=== PATIENT | male | born 1995 | race Caucasian/White ===

== ENCOUNTER 2020-11-10 19:35 | Emergency (ER) | payer OTHER, SELFPAY ==
[2020-11-10 19:36] VITALS: BP 133/95; PULSE 78; RESP 16; TEMP 37.6; O2SAT 96; BMI 18.8
[2020-11-10 19:52] VITALS: BMI 19.3
--- NOTE | 2020-11-10 20:47 | W.ED.ANXIETY ---
HPI - Anxiety General: Chief Complaint: Anxiety Stated Complaint: anxiety Time Seen by Provider: 11/10/20 19:40 History of Present Illness: HPI narrative: 25-year-old male who is on hydrocodone chronically for neck and back pain. His last dose was last night. He had been trying to take himself off of these. He is experienced significant withdrawal symptoms today including significant diarrhea. A couple of episodes of vomiting. Chills, body aches, anxiety. He states there are couple of times today I thought I was going to . He attempted to treat his symptoms with Xanax, which did not improve his symptoms significantly. He did eat just prior to arrival. MD complaint: anxiety and other Onset (ago): hour(s) Symptoms: palpitations, muscle cramps and other Severity: moderate Quality: constant Place: home History of similar episodes: Yes Provoking factors: emotional stress and medication change (See above) Relieving factors: nothing Associated symptoms: Reports anorexia, chills, diaphoresis, nausea and vomiting; Deny chest pain, confusion or fever(s) Review of Systems Const: Reports: chills and diaphoresis; Denies: fever(s) ENMT: Denies: throat pain Card: Denies: chest pain Resp: Denies: dyspnea, productive cough or non-productive cough GI: Reports: nausea and vomiting Neuro: Denies: confusion Physical Exam Const: GENERAL APPEARANCE: cooperative and well developed NUTRITIONAL APPEARANCE: thin ORIENTATION/CONSCIOUSNESS: Yes oriented to person, Yes oriented to place and Yes oriented to time HENMT: COMMON NORMALS: normocephalic, external ears normal and Normal external nose present HEAD & SCALP: normocephalic FACE & SINUS: normal facial exam NOSE: Normal external nose present and No nasal discharge present EXTERNAL EAR: Yes external ears normal MOUTH: tongue normal THROAT: posterior oropharynx normal; no peritonsillar mass Eye: COMMON NORMALS: Equal, round and reactive pupils present, EOMs intact bilaterally and conjunctivae normal EYELID: eyelids normal CONJUNCTIVA: Yes conjunctivae normal PUPIL: Yes Equal, round and reactive pupils present Neck/C-Spine: GENERAL: No tracheal deviation Chest: COMMONS NORMALS: normal inspection of the chest CHEST: No tenderness Resp: COMMON NORMALS: clear to auscultation bilaterally EFFORT & INSPECTION: No tachypneic, No respiratory distress, No retractions, No uses accessory muscles and No tracheal deviation AUSCULTATION: clear to auscultation bilaterally, no rhonchi, no wheezes and lung sounds not diminished Cardio: COMMON NORMALS: regular rate and regular rhythm RATE: regular rate RHYTHM: regular rhythm HEART SOUNDS: no murmurs PERIPHERAL PULSES: radial pulses present GI: INSPECTION: No abdominal distension AUSCULTATION: No Hyperactive bowel sounds present and No Hypoactive bowel sounds present PALPATION: No Guarding due to palpation present (GI) and No Rigid due to palpation PERCUSSION: no dullness to percussion and no tympanic to percussion Neuro: SENSORIUM/ORIENTATION: Yes oriented to person, Yes oriented to place and Yes oriented to time Psych: COMMON NORMALS: mental status grossly normal Skin: COMMON NORMALS: no rashes or lesions noted GENERAL SKIN EXAM: no rashes or lesions noted Course Vital Signs: Vital signs: Vital Signs Temperature 98.5 F 11/10/20 23:14 Pulse Rate 73 11/10/20 23:14 Respiratory Rate 18 11/10/20 23:14 Blood Pressure 109/68 11/10/20 23:14 Pulse Oximetry 95 11/10/20 23:14 MDM - Anxiety MDM Narrative: Medical decision making narrative: Labs normal. He appears calm. He has been given symptom control medication for opioid withdrawal including Ativan, and a clonidine patch. He will be discharged on the clonidine patch for the next 4 days or so, along with Ativan three times a day to help control symptoms. Lab Data: Labs: Lab Results 11/10/20 11/10/20 Range/Units 20:55 20:55 WBC 5.9 (4.0-10.0) 10^3/ uL RBC 4.72 (4.1-5.3) 10^6/u L Hgb 15.3 (11.7-16.6) g/dL Hct 43.5 (42.0-52.0) % MCV 92.2 (80-94) fL MCH 32.4 (28.0-34.0) pg MCHC 35.2 (30.0-36.0) g/dL RDW 11.4 L (12.1-15.1) % Plt Count 256 (130-400) 10^3/c mm MPV 8.8 (7.4-10.4) fL Neut % (Auto) 76.7 % Lymph % (Auto) 18.7 % Crenshaw % (Auto) 3.9 % Eos % (Auto) 0.0 % Baso % (Auto) 0.5 % Neut # (Auto) 4.50 (1.8-7.7) 10^3/u L Lymph # (Auto) 1.1 (0.8-4.8) 10^3/u L Crenshaw # (Auto) 0.2 (0.2-0.9) 10^3/u L Eos # (Auto) 0.0 (0.0-0.8) 10^3/u L Baso # (Auto) 0.0 (0.0-0.1) 10^3/u L Nucleated RBC % (a uto) 0 % Nucleated RBCs # 0.0 /100WBC Sodium 139 (136-145) mmol/L Potassium 4.0 (3.5-5.1) mmol/L Chloride 100 (98-107) mmol/L Carbon Dioxide 28 (22-29) mmol/L Anion Gap 15.0 (5-19) BUN 7 (6-20) mg/dL Creatinine 0.8 (0.7-1.2) mg/dL GFR Calculation 116.0 (90-130) mL/min Glucose 89 (65-115) mg/dL Calculated Osmolal ity 285 (285-295) mOsm/k g Calcium 9.9 (8.5-10.5) mg/dL Total Bilirubin 1.0 (0.15-1.2) mg/dL AST 26 (0-40) U/L ALT 43 H (0-41) U/L Alkaline Phosphata se 75 (40-130) IU/L Total Protein 6.8 (6.6-8.7) g/dL Albumin 4.7 (3.5-5.2) g/dL Globulin 2.1 (1.3-4.6) g/dL Discharge Plan Discharge Patient Disposition: Home Clinical Impression: Opioid dependence with withdrawal Condition: Stable Prescriptions: New Ativan 1 mg tablet 1 mg PO TID PRN (Reason: anxiety) Qty: 10 RF: 0 Discharge Orders: Discharge ED (Routine); Ordered 11/10/20 Ordered By: Luis M Phillips Referrals: Fausto Moncada MD [Referring] - 4-7 days Miguel Angel Combs MD [Primary Care Provider] - Patient Instructions: Opioid Withdrawal (ED) Activity Restrictions/Additional Instructions: Leave the patch on to help control your symptoms for the next 3 to 4 days. Take lorazepam scheduled three times daily for the next 48 hours, then as needed. Make sure you are staying hydrated with clear liquids. Coding Level of Care Code ED Buttonhole Maker Hand for Ruig Fwd Exam Comprehensive
[2020-11-10] MEDS: ketorolac 30 mg/mL INJ 15 MG IVP (20:57)
[2020-11-10] MEDS: sodium chloride 0.9% 1,000 ML 999 ML IV (20:59)
[2020-11-10] MEDS: diphenhydrAMINE 50 mg/mL SDV 1mL IVP (20:59)
[2020-11-10 21:04] LABS: Basophils % 0.5 %; Hematocrit 43.5 % (42.0-52.0); Hemoglobin 15.3 g/dL (11.7-16.6); Lymphocytes # 1.1 10^3/uL (0.8-4.8); Lymphocytes % 18.7 %; Mean Corpuscular HGB Conc 35.2 g/dL (30.0-36.0); Mean Corpuscular Hemoglobin 32.4 pg (28.0-34.0); Mean Corpuscular Volume 92.2 fL (80-94); Mean Platelet Volume 8.8 fL (7.4-10.4); Monocytes # 0.2 10^3/uL (0.2-0.9); Monocytes % 3.9 %; Neutrophils % 76.7 %; Nucleated Red Blood Cells % 0 %; Platelet Count 256 10^3/cmm (130-400); Red Blood Count 4.72 10^6/uL (4.1-5.3); Red Cell Distribution Width 11.4 % (12.1-15.1); White Blood Count 5.9 10^3/uL (4.0-10.0)
[2020-11-10 21:30] LABS: Alanine Aminotransferase 43 U/L (0-41); Albumin Level 4.7 g/dL (3.5-5.2); Alkaline Phosphatase 75 IU/L (40-130); Aspartate Amino Transferase 26 U/L (0-40); Blood Urea Nitrogen 7 mg/dL (6-20); Calcium 9.9 mg/dL (8.5-10.5); Carbon Dioxide 28 mmol/L (22-29); Chloride 100 mmol/L (98-107); Creatinine Clr Calc Pharmacy 117.8111; Globulin 2.1 g/dL (1.3-4.6); Glucose 89 mg/dL (65-115); Osmolality Calculated 285 mOsm/kg (285-295); Sodium 139 mmol/L (136-145); Total Protein 6.8 g/dL (6.6-8.7)
[2020-11-10] MEDS: cloNIDine 0.1 mg/24 hr Patch 1 PATCH TRANSDERMA (22:42)
[2020-11-10] MEDS: LORazepam 2 mg/mL INJ 1 mL 1.5 MG IVP (23:00)
[2020-11-10 23:14] VITALS: BP 109/68; PULSE 73; RESP 18; TEMP 36.9; O2SAT 95
== END 2020-11-10 23:34 | disposition home or self-care (01) ==
PROVIDERS: Emergency Provider Emergency Medicine; PCP Family Medicine
DX: F11.23 Opioid dependence with withdrawal (principal)
CPT/HCPCS: 80053; 85025; 96361; 96374; 96375; 99284; J1200; J1885; J2060; J7030

== ENCOUNTER → 2021-05-22 17:22 | Outpatient (BNVA) | payer OTHER, SELFPAY | PROVIDERS: PCP Family Medicine; Visit Provider Nurse Practitioner Family | DX: Z20.822 Contact with and (suspected) exposure to COVID-19 (principal); J02.9 Acute pharyngitis, unspecified; R05.9 Cough, unspecified | CPT/HCPCS: 87635 ==